=== PATIENT | male | born 1975 | race Two or more races ===

== ENCOUNTER 2021-08-01 06:14 | Day surgery (SDC) | payer BC ==
[2021-07-29 09:31] VITALS: BMI 23.0
[2021-08-01] MEDS ORDERED: PROPOFOL 20 ML ONE ×3 (07:14→08:46)
[2021-08-01] MEDS ORDERED: MIDAZOLAM HCL 2 MG/2 ML SINGLE DOSE VIAL ONE (07:14)
[2021-08-01] MEDS ORDERED: KETAMINE HCL 200 MG/20 ML VIAL ONE (07:14)
[2021-08-01] MEDS ORDERED: SUCCINYLCHOLINE CHLORIDE 200 MG/10 ML SYRINGE ONE (07:17)
[2021-08-01] MEDS ORDERED: BUPIVACAINE HCL/PF 2.5 MG/ML - 30 ML VIAL IJ ONE (07:17)
[2021-08-01] MEDS ORDERED: EPINEPHrine 1:1,000 1 MG/1 ML - 30ML VIAL (INJECTION) ONE (07:32)
[2021-08-01] MEDS ORDERED: ACETAMINOPHEN INJECTION 100 ML IVPB ONE (07:42)
[2021-08-01] MEDS ORDERED: LIDOCAINE HCL 2% JELLY (5 ML/TUBE) ONE (08:16)
[2021-08-01] MEDS ORDERED: LIDOCAINE HCL/PF 2% SDV 5ML VIAL ONE (08:20)
[2021-08-01] MEDS ORDERED: ONDANSETRON 4 MG/2 ML VIAL ONE (08:20)
[2021-08-01] MEDS ORDERED: ceFAZolin SODIUM 1 GM VIAL ONE (08:21)
[2021-08-01] MEDS ORDERED: KETOROLAC TROMETHAMINE 30 MG/1 ML VIAL ONE (08:21)
[2021-08-01] MEDS ORDERED: BUPIVACAINE HCL/PF 0.25% (2.5MG/ML) 10 ML VIAL IJ ONE (08:30)
[2021-08-01 10:16] VITALS: BP 121/75; PULSE 69; TEMP 98
== END 2021-08-01 10:29 | disposition home or self-care (01) ==
LOC: FASU 06:14
PROVIDERS: ATTEND Orthopaedic Surgery
PROC: 0SBD4ZZ Excision of Left Knee Joint, Percutaneous Endoscopic Approach (ICD-10-PCS; principal; 2021-08-01 08:23)
DX: S83.242A Other tear of medial meniscus, current injury, left knee, initial encounter (principal); M65.862 Other synovitis and tenosynovitis, left lower leg; X58.XXXA Exposure to other specified factors, initial encounter; Y93.9 Activity, unspecified; Y92.9 Unspecified place or not applicable
CPT/HCPCS: 82962; 88304-TC; 94760; J0131